=== PATIENT | male | born 1960 | race Caucasian/White ===

== ENCOUNTER 2016-06-07 20:46 | Emergency (ER) | payer OTHER ==
[2016-06-07 21:40] LABS: BASOPHIL 0.1 % (0-2); EOSINOPHIL 0.1 % (0-5); HCT 45.4 % (42.0-52.0); HGB 15.5 g/dl (13.2-18.0); LYMPHOCYTE 11.3 % (15-48); MCH 31.2 pg (25.0-31.0); MCHC 34.1 g/dL (32.0-36.0); MCV 91.3 fL (78.0-100.0); MONOCYTE 11.7 % (0-12); MPV 9.6 fL (6.0-9.5); NEUTROPHIL 76.8 % (41-80); PLT 176 K/uL (150-400); RBC 4.97 M/uL (4.70-6.00); RDW 13.4 % (11.5-14.0); WBC 12.5 K/uL (4.0-10.5)
[2016-06-07 22:00] LABS: ALBUMIN 4.4 g/dL (3.5-5.0); BILIRUBIN - TOTAL 0.7 mg/dL (0.1-1.0); CREATININE 1.2 mg/dL (0.7-1.2); GLOBULIN (CALCULATION) 2.9 g/dL (2.2-4.2); POTASSIUM 4.1 mmol/L (3.5-5.1); TOTAL PROTEIN 7.3 g/dL (6.4-8.3)
== END 2016-06-07 23:09 | disposition home or self-care (01) ==
LOC: FER 20:46
PROVIDERS: Emergency Medicine
DX: J02.0 Streptococcal pharyngitis (principal); I10 Essential (primary) hypertension; E78.5 Hyperlipidemia, unspecified; Z79.82 Long term (current) use of aspirin; Z79.899 Other long term (current) drug therapy
CPT/HCPCS: 36415; 71020; 80053; 82150; 83690; 85025; 87450; 87804; 87899; 96372; J0561; J2405